=== PATIENT | male | born 1955 | race Hispanic/Latino ===

== ENCOUNTER → 2024-08-31 | Outpatient (CLI) | payer OTHER ==
[~2024-08-31] MED LIST: IOHEXOL 350 MG/ML 100ML INFUS..BTL IV ONE
--- NOTE | 2024-08-31 11:26 | HMCIMG ---
CT ABDOMEN/PELVIS W/CONTRAST REASON: LEFT LOWER QUADRANT ABDOMINAL SWELLING, MASS AND LUMP COMPARISON: None. TECHNIQUE: Images are obtained from lung bases to symphysis pubis following IV contrast, 100 cc Omnipaque [id number]. FINDINGS: Lung bases are clear. There are no focal liver lesions. There are normal-appearing kidneys.. Spleen and pancreas appear unremarkable. The gallbladder appears normal as well. Bowel loops appear unremarkable. This includes normal appearance of the appendix There is no evidence of free fluid or intraperitoneal air. There are no focal fluid collections. Aorta and retroperitoneum appear normal. Prostate is enlarged at 4.4 x 4.5 x 6.3 cm. Prostate appears to protrude into the base of the bladder. There is moderate bladder wall thickening. The anterior abdominal wall is intact. Osseous structures appear unremarkable. IMPRESSION: 1. Enlarged prostate protruding into the base of bladder, there is bladder wall thickening. 2. Otherwise unremarkable postcontrast CT abdomen and pelvis. CT was performed with one or more following dose reduction techniques: automated exposure control, adjustment of the mA and kv according to patient's size, or use of a iterative reconstruction technique.
== END | disposition home or self-care (01) ==
LOC: RAH 09:40
PROVIDERS: ATTEND Internal Medicine
DX: N40.0 Benign prostatic hyperplasia without lower urinary tract symptoms (principal); N32.89 Other specified disorders of bladder; R19.04 Left lower quadrant abdominal swelling, mass and lump
CPT/HCPCS: 74177; Q9967

== ENCOUNTER → 2025-04-10 | Outpatient (CLI) | payer OTHER ==
[~2025-04-10] MED LIST changes: +GADOTERATE MEGLUMINE 10 MMOL/20 ML VIAL IV ONE; -IOHEXOL 350 MG/ML 100ML INFUS..BTL IV ONE
--- NOTE | 2025-04-11 08:37 | HMCIMG ---
EXAMINATION: MRI Pelvis with and without contrast CLINICAL HISTORY: Left lower quadrant abdominal swelling, mass, and lump COMPARISON: CT abdomen and pelvis dated August 31, 2024 TECHNIQUE: Multiplanar, multisequence MRI of the pelvis was performed before and after intravenous gadolinium administration. Imaging includes T1- and T2-weighted sequences, diffusion-weighted imaging (DWI), apparent diffusion coefficient (ADC) maps, and post-contrast sequences. Sagittal and coronal reformatted images submitted for interpretation. FINDINGS: Abdominal Wall and Inguinal Region: There is a fat-containing left inguinal hernia without bowel loop involvement. No evidence of incarceration or strangulation. The hernia sac is visualized extending through the left inguinal canal into the subcutaneous tissues of the left lower quadrant. No associated soft tissue mass or abnormal enhancement is identified. Prostate Gland: The prostate gland is enlarged, measuring approximately 5.6 x 4.0 x 5.3 cm (AP x transverse x craniocaudal). The calculated ellipsoid volume using the formula (?/6 ??? AP ??? transverse ??? craniocaudal) is approximately 62.1 cc. There is median lobe hypertrophy with intravesical prostatic projection measuring approximately 1.5 cm. No discrete suspicious lesions are identified on T2-weighted or diffusion-weighted imaging. Urinary Bladder: The bladder is partially distended and demonstrates diffuse wall thickening with a maximum wall thickness of approximately 0.8 cm. Findings are concerning for chronic bladder outlet obstruction. No intraluminal masses or abnormal enhancement are seen. Seminal Vesicles: Seminal vesicles are symmetric and unremarkable in signal and size. No evidence of invasion or mass. Peripheral and Transitional Zones: No suspicious T2 hypointense nodules or areas of restricted diffusion are identified in the peripheral or transitional zones of the prostate. Rectum and Anal Canal: Normal in course and signal. No wall thickening or perirectal abnormalities. Pelvic Lymph Nodes: No enlarged or abnormal pelvic lymph nodes are seen. Bones: No suspicious osseous lesions or abnormal marrow signal are identified in the visualized pelvic bones. Vessels: Pelvic vessels appear patent without evidence of thrombosis or abnormal caliber. IMPRESSION: Fat-containing left inguinal hernia without evidence of bowel involvement, incarceration, or soft tissue mass. Prostate gland is enlarged with a calculated volume of approximately 62.1 cc, with median lobe hypertrophy and 1.5 cm intravesical prostatic projection. Diffuse urinary bladder wall thickening, likely related to chronic bladder outflow obstruction. /Shara
== END | disposition home or self-care (01) ==
LOC: RAH 08:45
PROVIDERS: ATTEND Internal Medicine
DX: N40.0 Benign prostatic hyperplasia without lower urinary tract symptoms (principal); K40.90 Unilateral inguinal hernia, without obstruction or gangrene, not specified as recurrent; N32.89 Other specified disorders of bladder; R19.04 Left lower quadrant abdominal swelling, mass and lump
CPT/HCPCS: 72197; A9575